=== PATIENT | male | born 1995 | race Caucasian/White ===

== ENCOUNTER 2017-11-07 18:50 | Emergency (ER) | payer OTHER ==
[2017-11-07 19:25] VITALS: BP 122/81
[2017-11-07] MEDS ORDERED: Lidocaine 2% W/EPI 1:100,000* 20 ML MDV INJ ONE (19:35)
--- NOTE | 2017-11-07 19:35 | UC ---
Laceration HPI - HPI Summary HPI Summary: Hit by a pitched baseball this evening. Struck in the right side of the chin. C/ O left jaw pain. - History Of Current Complaint Chief Complaint: UCLaceration Stated Complaint: CHIN LACERATION Hx Obtained From: Patient Laceration Location: Face - right chin Mechanism Of Injury: Blunt Trauma - baseball Onset/Duration: Sudden Onset, Lasting Minutes - 30 Severity: Moderate Pain Intensity: 4 Aggravating Factors: Movement Facial Trauma: 1 - under the chin laceration. 2.2 cm Related History: Dominant Hand Right - Allergies/Home Medications Allergies/Adverse Reactions: Allergies Allergy/AdvReac Type Severity Reaction Status Date / Time No Known Allergies Allergy Verified 11/07/17 19:15 Home Medications: Home Medications NK [No Home Medications Reported] 11/07/17 [History Confirmed 11/07/17] PMH/Surg Hx/FS Hx/Imm Hx - Surgical History Surgical History: None - Social History Alcohol Use: Weekly Substance Use Type: None Smoking Status (MU): Never Smoked Tobacco - Immunization History Most Recent Tetanus Shot: WITHIN 5 YEARS Review of Systems Musculoskeletal: Arthralgia - left jaw at the angle of the mandible. Is Patient Immunocompromised?: No All Other Systems Reviewed And Are Negative: Yes Physical Exam Triage Information Reviewed: Yes Appearance: Well-Appearing, No Pain Distress, Well-Nourished Vital Signs: Initial Vital Signs Temp 98.3 F 11/07/17 19:17 Pulse 66 11/07/17 19:17 Resp 16 11/07/17 19:17 BP 122/81 11/07/17 19:17 Pulse Ox 100 11/07/17 19:17 Vital Signs Reviewed: Yes ENT: Positive: Pharynx normal, TMs normal Dental Exam: Normal Neck exam: Normal Respiratory Exam: Normal Cardiovascular Exam: Normal Musculoskeletal: Positive: ROM Intact - in the jaw. Fully able to open Neurological Exam: Normal Psychological Exam: Normal Skin: Positive: Other - laceration Laceration Repair - Laceration Repair 1 Description: Linear Laceration Size After Repair: Length (cm) - 2.2cm Modified For Repair: No Type Injection: Local Anesthesia Used: 2.0% Lido Additive Used (in ml): Epi Cleansing Completed Via Routine Prep: Yes Irrigation With Pressure Irrigation Device: Yes Closure Material: Sutures Closure Method: Single Layer - Running x 7 sutures Suture Of: Skin Suture Type: Nylon - 4-0 nylon Laceration Course/Dx - Differential Dx - Laceration/Wound Differental Diagnoses: Abrasion, Avulsion, Laceration Provider Diagnoses: 2.2 cm open wound chin Discharge - Sign-Out/Discharge Documenting (check all that apply): Discharge/Admit/Transfer - Discharge Plan Condition: Stable Disposition: HOME Patient Education Materials: Facial Laceration (ED) Forms: *Work Release Referrals: No Primary Care Phys,NOPCP [Primary Care Provider] - 1 Week (Come back to have sutures removed) Additional Instructions: Use antibiotic ointment twice a day. - Billing Disposition and Condition Condition: STABLE Disposition: Home
== END 2017-11-07 20:22 | disposition home or self-care (01) ==
LOC: UCCORT 18:50
DX: S01.81XA Laceration without foreign body of other part of head, initial encounter (principal); W21.03XA Struck by baseball, initial encounter; Y93.64 Activity, baseball; Y92.9 Unspecified place or not applicable
CPT/HCPCS: 12011; 99201; G0463